=== PATIENT | female | born 1945 | race Caucasian/White ===

== ENCOUNTER 2018-09-22 01:18 | Inpatient (IN) | payer OTHER ==
[~2018-09-22] VITALS: Ht 170.2 cm; Wt 110.2 kg
[2018-09-22 03:01] VITALS: BP 139/65
[2018-09-22] MEDS ORDERED: ASPIR 8181 MG PO (03:21)
[2018-09-22] MEDS ORDERED: AMITRIPTYLINE H50 M3 PO (03:21)
[2018-09-22] MEDS ORDERED: ATORVASTATIN CA40 MG PO (03:22)
[2018-09-22] MEDS ORDERED: CYCLOBENZAPRINE5 MG PO (03:24)
[2018-09-22] MEDS ORDERED: DICYCLOMINE HCL20 MG PO (03:27)
[2018-09-22] MEDS ORDERED: LISINOPRIL40 MG PO (03:27)
[2018-09-22] MEDS ORDERED: MELATONIN3 MG PO (03:28)
[2018-09-22] MEDS ORDERED: GLUCOPHAGE1000 MG PO (03:29)
[2018-09-22] MEDS ORDERED: TRAZODONE 150150 M1 PO (03:30)
[2018-09-22] MEDS ORDERED: TRESIBA FL100 UNIT/1 SUBQ (03:32)
[2018-09-22] MEDS ORDERED: MAXZIDE-25 MG1 EACH PO (03:33)
[2018-09-22 04:54] LABS: HEMATOCRIT 38.3 % (37.0-47.0); HEMOGLOBIN 12.7 gm/dL (12.0-15.0); MCH 27.9 pg (26.0-34.0); MCHC 33.3 g/dL (28.0-37.0); MCV 83.8 fL (80.0-100.0); RBC 4.57 mil/uL (4.20-5.00); RDW 14.4 % (10.5-14.5); WBC 9.1 thou/uL (4.0-11.0)
[2018-09-22 04:56] LABS: CALCIUM 9.9 mg/dL (8.5-10.1); CREATININE 1.1 mg/dL (0.6-1.0)
[2018-09-22 05:03] LABS: CHOLESTEROL 226 mg/dL (<200); HDL CHOLESTEROL 39 mg/dL (>40); LDL CHOLESTEROL 149 mg/dL (<100); TC:HDL 5.8 Ratio (Not establshd); TRIGLYCERIDE 191 mg/dL (<150); VLDL 38 mg/dL (<40)
[2018-09-22 05:04] LABS: SERUM ASSESSMENT Clear
[2018-09-22 05:16] VITALS: BP 145/63
[2018-09-22 05:59] LABS: PROTIME 10.1 Seconds (9.3-11.4)
[2018-09-22 07:15] VITALS: BP 128/58
--- NOTE | 2018-09-22 08:44 | NUR ---
PT. ARRIVED AT AROUND 0300; AOX4; AMBULATORY WITH ONE PERSON ASSISSTANCE; NO C/O CHEST PAIN; ON HEPARING GTT AT 10 ML/H; NO ADJUSTMENT DONE PER PROTOCOL; CHECK CHARTING; ON BED; FALL PRECAUTIONS ON PLACE; EDUCATED ABOUT IT; ST. UNDERSTANDING; REMAIN NPO; ASSESSMENT CHARGED; FOLLOWING POC; PASSED ON REPORT.
[2018-09-22 11:45] VITALS: BP 141/68
[2018-09-22 20:15] VITALS: BP 126/50
--- NOTE | 2018-09-22 20:44 | NUR ---
ASSUMED CARE OF PT AT 0700. PT A&OX4. PT TAKEN TO BAR HOST/HOSTESS AND WAS FEARFUL AND TEARFUL. REASSURANCE GIVEN. PT RETURNED FROM BAR HOST/HOSTESS AT APPROX 1145 AND WAS CALM AND COMFORTABLE. PT HAD RIGHT RADIAL ACCESS. AFTER AIR PRESSURE REMOVED FROM RADIAL DEVICE SOME BLEEDING WAS NOTICED AND BAND REPRESSURIZE AND DEVICE DECOMPRESSED PER PROTOCOL. PT HAD GOOD RADIAL PULSES AND RIGHT HAD SENSATION WAS INTACTED. PT HAD PRESSURE DRESSING APPLIED THAT WAS C/D/I AT END OF SHIFT. WILL CONT WITH POC.
--- NOTE | 2018-09-22 21:27 | HC ---
[facility] [place] [address] CONSULTATION Name: TUNDE MILLARD Room #: 210-P [facility] IN M.R.#: [id number] Admission: 09/22/18 ������������������ Attend Phys: Alexis Poe MD Discharge: ������������������ Date of : 45 Report #: [id number] THIS REPORT FOR: //name// CC: Alexis MONK unknown DATE OF SERVICE: 09/22/2018 INDICATION: Chest pain. HISTORY OF PRESENT ILLNESS: This is a 73-year-old female with a history of diabetes mellitus, hypertension, hyperlipidemia, chronic back pains, presenting with chest pains. Over the past several weeks, she has had substernal chest discomfort radiating up to the jaw area with ambulation. She denies any associated diaphoresis or shortness of breath. There is no history of fever, chills or orthopnea. Yesterday, after eating a sandwich she developed chest pain, radiating up to the jaw area. She went to the ER at [facility], found to have an elevated troponin level. She was started on heparin IV and transferred to [facility] for further evaluation. She denies any further chest pains. ALLERGIES: MORPHINE. MEDICATIONS: At home include aspirin 81, Lipitor 40 mg, lisinopril 40 mg daily, metformin, insulin, and Maxzide. SOCIAL HISTORY: Denies tobacco use. FAMILY HISTORY: Negative for premature CAD. REVIEW OF SYSTEMS: A full 10-point review of systems performed, only the pertinent positives and negatives as described in the HPI. PHYSICAL EXAMINATION: VITAL SIGNS: Blood pressure is 130/60, heart rate is 80 beats per minute. GENERAL APPEARANCE: An overweight female, in no acute respiratory distress. HEENT: Normocephalic, atraumatic. Oral mucosa moist. NECK: Supple. LUNGS: Clear to auscultation. CARDIAC: Regular rate and rhythm, S1, S2 positive. ABDOMEN: Soft, nontender. EXTREMITIES: No cyanosis, trace edema. ECG reveals sinus rhythm, LVH. LABORATORY VALUES: White count is 9.1, hemoglobin 12.7. Creatinine is 1.1. [facility] [address] [place] [address] CONSULTATION Name: TUNDE MILLARD Room #: 210-P ADM IN M.R.#: [id number] Admission: 09/22/18 ������������������ Attend Phys: Alexis Poe MD Discharge: ������������������ Date of : 45 Report #: [id number] Troponin is 0.65. LDL is 149. ASSESSMENT AND PLAN: 1. Non-ST elevation myocardial infarction. The patient presents with chest pains radiating up to the jaw area with positive troponin levels. I discussed with the patient the pros and cons of noninvasive stress testing versus stress testing versus cardiac catheterization. In light of her presentation and multiple coronary artery disease risk factors, we will proceed with a cardiac catheterization. 2. Hypertension, continue with medications. 3. Hypercholesterolemia, continue with Lipitor. 4. Diabetes, continue with insulin regimen. 5. History of noncompliance, discussed with the patient the importance of compliance. ��������������������������������������������� <ELECTRONICALLY SIGNED> ���������������������������������������� By: Anatoliy Pena MD ��������������������������������������������� 09/22/18 2127 0918 17 Anatoliy Pena MD /nt
[2018-09-22 23:51] VITALS: BP 109/58
--- NOTE | 2018-09-23 00:31 | NUR ---
ASSESSMENTS CHARTED. PATIENT REQUESTED FALL PRECAUTIONS TAKEN OFF, BUT ON DEMOSTRATION OF WALKING PATIENT WAS VERY UNSTEADY. FALL PRECAUTIONS REMAIN IN PLACE. NORMAL SALINE GTT DC'D AT BAG'S COMPLETION. RIGHT RADIAL PRESSURE DRESSING REMAINS C/D/I. PLAN OF CARE IS TO GO HOME IN MORNING.
[2018-09-23 04:30] VITALS: BP 138/74
[2018-09-23 05:03] LABS: HEMATOCRIT 36.3 % (37.0-47.0); HEMOGLOBIN 12.3 gm/dL (12.0-15.0); MCH 28.3 pg (26.0-34.0); MCHC 33.9 g/dL (28.0-37.0); MCV 83.5 fL (80.0-100.0); RBC 4.35 mil/uL (4.20-5.00); RDW 14.6 % (10.5-14.5); WBC 7.9 thou/uL (4.0-11.0)
[2018-09-23 05:21] LABS: ALBUMIN 3.4 g/dL (3.4-5.0); CALCIUM 9.5 mg/dL (8.5-10.1); POTASSIUM 4.8 mmol/L (3.5-5.1); TOTAL BILIRUBIN 0.3 mg/dL (<0.1-1.0); TOTAL PROTEIN 6.5 g/dL (6.4-8.2)
--- NOTE | 2018-09-23 06:44 | NUR ---
ASSUMED CARE AROUND 0100. DENIES CHEST PAIN. TX FOR LOW BACK PAIN IN AM. NO S/S ACUTE DISTRESS NOTED OR REPORTED AT THIS TIME. WILL CONT TO MONITOR FOR ANY CHANGES IN CONDITION.
[2018-09-23 07:15] VITALS: BP 116/55
--- NOTE | 2018-09-23 08:18 | EKG ---
[address] [address] ELECTROCARDIOGRAM REPORT Name: TUNDE MILLARD Room #: 210-P ADM IN M.R.#: [id number] ������������������ Admission: 09/22/18 ������������������ Attend Phys: Alexis Poe MD Discharge: ������������������ Date of : 45 Report #: [id number] ����������������������������������������������������������������� [id number] THIS REPORT FOR: //name// [facility] Test Date: 2018-09-22 Test Time: 08:02:23 Pat Name: TUNDE MILLARD Department: Room: 210 P Gender: F Switchboard Receptionist: NAN : 1945 Requested By: Clarisse Rosado Order Number: [id number] MD: Anatoliy Pena Measurements Intervals Palmer Rate: 73 P: 8 MT: 166 QRS: 17 QRSD: 107 T: 0 QT: 412 QTc: 454 Interpretive Statements Sinus rhythm Left ventricular hypertrophy No previous ECG available for comparison Electronically Signed On 09-23-2018 8:17:49 CDT by Anatoliy Pena [email or web address] ��������������������������������������������� <ELECTRONICALLY SIGNED> ���������������������������������������� By: Anatoliy Pena MD ��������������������������������������������� 09/23/18 0817 0802 0802 Anatoliy Pena MD /EPI
[2018-09-23] MEDS ORDERED: METOPROLOL SUCC25 M1 PO (08:53)
--- NOTE | 2018-09-23 10:27 | CATHLAB ---
[facility] [address] [place] [address] INVASIVE PROCEDURE REPORT Name: TUNDE MILLARD Room #: 210-P ADM IN M.R.#: [id number] ������������� Admission: 09/22/18 ������������� Attend Phys: Alexis Poe MD Discharge: ��� ������������� ��� Date of : 45 Date of Service: 09/23/18 1027 �� Report #: [id number] �������� ��������������������������������������������[id number] THIS REPORT FOR: //name// APPROVED REPORT Study performed: 09/22/2018 09:38:25 Patient Details Patient Status: In-Patient Room #: The patient is a 73 year-old female Event Personnel Anatoliy Pena Tree Trimmer Helper, Lidia Lagos RN RN, Brynn Lloyd Monitor, Nuzhat Daugherty RTR, [employer] Scrub, Raul Sheffield RTR Scrub Procedures Performed Art Access - R radial artery Left Heart Cath w/or w/o Coronaries [id number] [facility] [address] Place w/wo Plasty Single RCA 670831 63073 Initial Mod Sed Same Phys/QHP Gr5y 463234 76847 Mod Sed Same Phys/QHP Ea 711824 Hemostasis with Hemoband Indication Non-STEMI , Dyspnea, Chest pain Risk Factors Obesity, Hypercholesterolemia, Hypertension, Diabetes Procedure Narrative The patient was brought urgently to the Cardiac Catheterization Laboratory and was prepped and draped in a sterile manner. The Right Wrist^ was infiltrated with 1% Lidocaine subcutaneous anesthesia. A TRANSRADIAL SLENDER 6F GLIDESHEATH KIT #[id number] sheath was inserted into the Right Radial Artery^. Coronary angiography was performed using coronary diagnostic catheters. The right coronary system was accessed and visualized with a JR 4 catheter. The left coronary system was accessed and visualized with a JL 3.5 catheter. The left ventricle was accessed and visualized with a Pigtail catheter. Left ventricular/Aortic Valve gradient assessed via catheter pullback. Left ventriculogram was performed in TORRES projection. Closure device was deployed with a Fr VASC BAND R 24CM #[id number]. The patient tolerated the procedure well and there were no complications associated with the procedure. There was no hematoma. Intraoperative Conscious Sedation [facility] [address] [place] [address] INVASIVE PROCEDURE REPORT Name: TUNDE MILLARD Room #: 210-P [facility] IN .R.#: [id number] ������������� Admission: 09/22/18 ������������� Attend Phys: Alexis Poe MD Discharge: ��� ������������� ��� Date of : 45 Date of Service: 09/23/18 1027 �� Report #: [id number] �������� ��������������������������������������������[id number] Sedation start time: 10:18 Case end Time: 11:11 Fentanyl 50 mcg Versed 1 mg Fluoro Time: 21.58 minutes Dose: DAP 59056.00 cGycm2 3452 mGy Contrast Type and Amount: Visipaque 195 ml Diagnostic Cath Left Main This is a large caliber vessel, with mild disease in the distal segment. LAD This is a moderate size caliber vessel, traversing the anterior wall and wrapping around the apex. There is mild calcifications in the proximal and mid segments. There is mild disease in the mid segment, 30%. Diagonal 1 This is a patent vessel, with no flow-limiting lesions. Circumflex This is a moderate size caliber vessel, supplying 2 obtuse marginal arteries. OM1 This is a patent vessel, with no flow-limiting lesions. OM2 There is a severe stenosis, 70% in the proximal segment. Recommend medical therapy. Right Coronary This is a dominant vessel, calcified with a severe stenosis in the mid segment, 95%. R PDA This is a patent vessel, with no flow-limiting lesions. RPLV This is a patent vessel, with no flow-limiting lesions. Left Ventriculography The left ventricle is normal in size with normal contractility. The left ventricular ejection fraction is estimated to be 50-55%. Hemodynamics The aortic pressure is 141/82 mmHg with a mean of 109 mmHg. The left ventricular pressure is 138/11 mmHg with a mean of mmHg. The left ventricular end diastolic pressure is 17 mmHg. PCI Technique Lesion Percutaneous coronary intervention was performed on the mid right coronary artery. The lesion stenosis prior to intervention was 95% with CATALINO 3 flow. A VISTA 6FR 3DRC #[id number] Guide Catheter was used to engage the ostium. A Luge Wire .014 x 182CM #[id number] Interventional Guidewire was used to cross the lesion. [facility] [address] [place] [address] INVASIVE PROCEDURE REPORT Name: TUNDE MILLARD Room #: 210-P ADM IN M.R.#: [id number] ������������� Admission: 09/22/18 ������������� Attend Phys: Alexis Poe MD Discharge: ��� ������������� ��� Date of : 45 Date of Service: 09/23/18 1027 �� Report #: [id number] �������� ��������������������������������������������[id number] BALLOON DILATION A Balloon catheter Euphora RX 2.5 x 12 #[id number] was inserted and inflated up to 14.00atm for 26seconds. Additional Inflation: 12.00atm for 20seconds. Additional Inflation: 14.00atm for 15seconds. STENT DEPLOYMENT A drug-eluting stent RESOLUTE JONNA RX 2.75 X15 #[id number] was inserted and inflated up to 18.00atm for 20seconds. Final angiography reveals 0 % stenosis with CATALINO 3 flow. Conclusion 1. Successful insertion of a drug-eluting stent into the RCA stenosis. 2. Mild disease in the LAD. 3. Borderline stenosis in the second obtuse marginal artery, recommend medical therapy. 4. Normal LV systolic function. 5. Recommend dual antiplatelet therapy and aggressive risk factor management. ��������������������������������������������� <ELECTRONICALLY SIGNED> ���������������������������������������� By: Anatoliy Pena MD ��������������������������������������������� 09/23/18 1027 1027 1027 Anatoliy Pena MD /INF
[2018-09-23 11:10] VITALS: BP 112/60
[2018-09-23 13:14] VITALS: BP 112/60
--- NOTE | 2018-09-23 16:47 | NUR ---
ASSUMED CARE OF PT AT 0700. PT A&OX4, UP WITH MIN ASSIST. PT'S RIGHT WRIST CATH ACCESS SITE C/D/I. CONDITION OF EXTREMITY APPROPRIATE AND SENSATION INTACT. PT DID NOT HAVE BLOOD THINNER ON DISCHARGE PAPER WORK AND DR. WILSON, DR. PATRICK CALLED AND ORDERED 75MG PLAVIS, QD, PO, #90, 1 REFILL. THIS WAS CALLED TO PT'S PHARMACY BY NURSE. PT HAD ONE IV AND TELE MONITOR REMOVED. PT STATED SHE HAD ALL BELONGINGS. POST ANGIO CARE INSTRUCTIONS PRINTED AND GIVEN TO PATIENT. PT DENIED COMPLAINT/CHEST PAIN. HAD SON TO DRIVE HER HOME.
[2018-09-24 11:11] LABS: GLYCOHEMOGLOBIN (HGB A1C) 7.7 % (4.8-5.6)
== END 2018-09-23 15:29 | disposition home or self-care (01) | DRG 246 ==
LOC: 2N 01:18
PROVIDERS: Internal Medicine Cardiovascular Disease; Nurse Practitioner Family; ADMIT Hospitalist
PROC: 027034Z Dilation of Coronary Artery, One Artery with Drug-eluting Intraluminal Device, Percutaneous Approach (ICD-10-PCS; principal; 2018-09-23)
PROC: B2111ZZ Fluoroscopy of Multiple Coronary Arteries using Low Osmolar Contrast (ICD-10-PCS; principal; 2018-09-23)
PROC: 3E0U33Z Introduction of Anti-inflammatory into Joints, Percutaneous Approach (ICD-10-PCS; principal; 2018-09-23)
PROC: B2151ZZ Fluoroscopy of Left Heart using Low Osmolar Contrast (ICD-10-PCS; principal; 2018-09-23)
PROC: 4A023N7 Measurement of Cardiac Sampling and Pressure, Left Heart, Percutaneous Approach (ICD-10-PCS; principal; 2018-09-23)
DX: I21.4 Non-ST elevation (NSTEMI) myocardial infarction (principal); I50.33 Acute on chronic diastolic (congestive) heart failure; E11.9 Type 2 diabetes mellitus without complications; I10 Essential (primary) hypertension; M16.0 Bilateral primary osteoarthritis of hip; E78.5 Hyperlipidemia, unspecified; M19.90 Unspecified osteoarthritis, unspecified site; E66.9 Obesity, unspecified; I25.10 Atherosclerotic heart disease of native coronary artery without angina pectoris; M54.5 Low back pain; E78.00 Pure hypercholesterolemia, unspecified; Z68.38 Body mass index [BMI] 38.0-38.9, adult; Z87.891 Personal history of nicotine dependence; Z90.49 Acquired absence of other specified parts of digestive tract; Z90.710 Acquired absence of both cervix and uterus; Z86.73 Personal history of transient ischemic attack (TIA), and cerebral infarction without residual deficits; Z91.14 Patient's other noncompliance with medication regimen; Z87.828 Personal history of other (healed) physical injury and trauma; Z79.4 Long term (current) use of insulin; Z79.82 Long term (current) use of aspirin; Z79.899 Other long term (current) drug therapy; Z88.5 Allergy status to narcotic agent; Z82.49 Family history of ischemic heart disease and other diseases of the circulatory system
CPT/HCPCS: 10797